=== PATIENT | male | born 1990 | race Two or more races ===

== ENCOUNTER 2017-11-27 20:58 | Emergency (ER) | payer OTHER ==
[~2017-11-27] VITALS: Ht 167.6 cm; Wt 68.0 kg
[2017-11-27 20:58] VITALS: BP 127/82
--- NOTE | 2017-11-27 21:31 | PHYS DOC ---
Adult General Chief Complaint Chief Complaint: LACERATION/AVULSION HPI HPI 27-year-old otherwise healthy male presents with a upper lip laceration after a fall in the shower. Patient is currently incarcerated. He denies this being related to an altercation. He states he did not lose consciousness. He denies any headache or lateralizing neurologic symptoms. He is unsure when his last tetanus shot was. He does not feel as if any of his teeth are loose. He states he thinks he hit the metal handle in the shower when he fell. [] Review of Systems Review of Systems Constitutional: Denies fever or chills [] Eyes: Denies change in visual acuity, redness, or eye pain [] HENT: Lip laceration as described above[] Respiratory: Denies cough or shortness of breath [] Cardiovascular: No additional information not addressed in HPI [] GI: Denies abdominal pain, nausea, vomiting, bloody stools or diarrhea [] : Denies dysuria or hematuria [] Musculoskeletal: Denies back pain or joint pain [] Integument: Denies rash or skin lesions [] Neurologic: Denies headache, focal weakness or sensory changes [] Endocrine: Denies polyuria or polydipsia [] All other systems were reviewed and found to be within normal limits, except as documented in this note. Current Medications Current Medications Current Medications Medications (Trade) Dose Ordered Sig/Howie Start Time Stop Time Status Last Admin Dose Admin Lidocaine HCl 20 ml 1X ONCE 11/27/17 21:15 11/27/17 21:16 UNV Tetanus/ Diphtheria Toxoids Adsorbed (Tenivac Vial) 0.5 ml ONCE ONCE 11/27/17 21:15 11/27/17 21:16 UNV Physical Exam Physical Exam Constitutional: Well developed, well nourished, no acute distress, non-toxic appearance who ambulated into the department in no distress. [] HENT: He has a complex 1.5 cm upper lip laceration crosses the vermilion border. [] Eyes: PERRLA, EOMI, conjunctiva normal, no discharge. [] Neck: Normal range of motion, no tenderness, supple, no stridor. [] Cardiovascular:Heart rate regular rhythm, no murmur [] Lungs & Thorax: Bilateral breath sounds clear to auscultation [] Abdomen: Bowel sounds normal, soft, no tenderness, no masses, no pulsatile masses. [] Skin: Warm, dry, no erythema, no rash. [] Back: No tenderness, no CVA tenderness. [] Extremities: No tenderness, no cyanosis, no clubbing, ROM intact, no edema. [] Neurologic: Alert and oriented X 3, normal motor function, normal sensory function, no focal deficits noted. [] Psychologic: Affect normal, judgement normal, mood normal. [] EKG EKG [] Radiology/Procedures Radiology/Procedures [] Course & Med Decision Making Course & Med Decision Making Pertinent Labs and Imaging studies reviewed. (See chart for details) [Procedure: Laceration repair The lip was anesthetized with 2% lidocaine without epinephrine. It was then scrubbed with chlorhexidine solution and inspected for foreign bodies there were none. The vermilion border was matched as closely as possible and 5 simple interrupted 5-0 Vicryl sutures were used to reapproximate the wound. The lip closure looked excellent. I rechecked his teeth and there were no loose teeth.] Dragon Disclaimer Dragon Disclaimer This electronic medical record was generated, in whole or in part, using a voice recognition dictation system. Departure Departure: Impression: Primary Impression: Laceration of upper lip with complication Disposition: 01 HOME, SELF-CARE Condition: STABLE Patient Instructions: Facial Laceration, Laceration Care, Adult Additional Instructions: Your wound was closed with absorbable sutures. The sutures will dissolve and do not need to be removed. Please keep the area clean and dry. Return immediately to the emergency department if there is any increased swelling or redness or increased pain around the laceration. Problem Qualifiers Primary Impression: Laceration of upper lip with complication Encounter type: initial encounter Qualified Codes: S01.511A - Laceration without foreign body of lip, initial encounter JUVENTINO LOO DO Nov 27, 2017 21:31
[2017-11-27] MEDS ORDERED: TETANUS AND DIPHTHERIA TOX/PF 0.5 ML VIAL. VAX IM ONE (21:45)
[2017-11-27] MEDS ORDERED: LIDOCAINE 2% 20 ML VIAL. IJ ONE (21:45)
== END 2017-11-27 21:52 | disposition home or self-care (01) ==
LOC: EEVIPCON 20:58 → ER 20:58
DX: S01.511A Laceration without foreign body of lip, initial encounter (principal); W19.XXXA Unspecified fall, initial encounter; Y93.E8 Activity, other personal hygiene; Y99.8 Other external cause status; Y92.89 Other specified places as the place of occurrence of the external cause
CPT/HCPCS: 40650; 90471; 90714; 99284-25